=== PATIENT | male | born 1990 | race Caucasian/White ===

== ENCOUNTER 2023-08-03 08:01 | Outpatient (CLI) | payer BC, SELFPAY ==
--- NOTE | ~2023-08-03 | XR_ITS ---
XR shoulder RT min 2V Ordering provider: Jcarlos Garcia MD History: . PAIN AND POPPING X1.5 MNTH . Comparison: None. FINDINGS: BONES: No acute fracture or dislocation. JOINT SPACES: The acromioclavicular joint shows osteoarthritic changes. The glenohumeral joint is nor mal. SOFT TISSUES: Normal. IMPRESSION: No acute osseous abnormality right shoulder. Reviewed, dictated and finalized at location A.
== END 2023-08-03 08:02 | disposition home or self-care (01) ==
PROVIDERS: PCP Family Medicine; Visit Provider Family Medicine
DX: M25.511 Pain in right shoulder (principal)
CPT/HCPCS: 73030

== ENCOUNTER 2023-11-16 14:42 | Outpatient (CLI) | payer BC, SELFPAY ==
--- NOTE | ~2023-11-16 | XR_ITS ---
EXAM: XR shoulder RT min 2V DATE: 11/16/2023 14:58 HISTORY: PAIN X6 MNTHS, NO INJURY, PAIN IN TRAP MUSCLE AREA . COMPARISON: 08/03/2023. FINDINGS: Normal mineralization. No fracture or dislocation. No lytic or blastic lesion. Moderate de generative change in the AC joint. No erosion or periosteal change. Soft tissues within normal limits . IMPRESSION: Moderate AC joint osteoarthritis. Reviewed, dictated and finalized at location K.
== END 2023-11-16 14:43 | disposition home or self-care (01) ==
LOC: ANHIMG 14:46
PROVIDERS: PCP Family Medicine; Visit Provider Orthopaedic Surgery
DX: M25.511 Pain in right shoulder (principal); M19.011 Primary osteoarthritis, right shoulder
CPT/HCPCS: 73030